=== PATIENT | female | born 1940 | race Caucasian/White ===

== ENCOUNTER → 2017-04-26 | Day surgery (SDC) | payer MEDICARE, MEDICAID ==
[~2017-04-26] MED LIST: LIDOCAINE 1%/EPI 1:200,000 10 ML VIAL IJ ONE; SODIUM BICARBONATE 4% (2.4MEQ) 5ML VIAL IV ONE
== END | disposition home or self-care (01) ==
LOC: RAD 08:55
PROVIDERS: ATTEND Internal Medicine
DX: C50.311 Malignant neoplasm of lower-inner quadrant of right female breast (principal)
CPT/HCPCS: 19083; 88305; A4648; J3490

== ENCOUNTER 2017-08-07 06:48 | Day surgery (SDC) | payer MEDICARE, MEDICAID ==
[~2017-08-07] VITALS: Ht 149.9 cm; Wt 53.1 kg
[2017-08-07 08:17] LABS: PARTIAL THROMBOPLASTIN TIME 24.1 sec (23.4-31.0); PROTHROMBIN TIME 10.3 sec (9.4-11.6)
[2017-08-07] MEDS ORDERED: SODIUM CHLORIDE 0.9% 1,000 ML IV SCH (09:30)
[2017-08-07] MEDS ORDERED: IBUP-2030 PO (10:05)
[2017-08-07] MEDS ORDERED: PENICILLIN PO (10:05)
[2017-08-07] MEDS ORDERED: INSLIS SUBCUT (10:10)
[2017-08-07] MEDS ORDERED: PRAV20TA57 PO (10:16)
[2017-08-07] MEDS ORDERED: INSU100I28 SQ ×2 (10:16)
[2017-08-07] MEDS ORDERED: TRAM50TA3 PO (10:16)
[2017-08-07] MEDS ORDERED: GABA-533 PO (10:16)
[2017-08-07] MEDS ORDERED: PANT40TA4 PO (10:19)
[2017-08-07] MEDS ORDERED: OXYB5TAB11 PO (10:19)
[2017-08-07] MEDS ORDERED: CLOT15CR2 TP (10:20)
[2017-08-07] MEDS ORDERED: NORMAL SALINE 0.9% 10 ML SYR ONE (12:52)
[2017-08-07] MEDS ORDERED: BUPIVACAINE HCL/PF 0.5% (5MG/ML) 10ML ONE (12:52)
[2017-08-07] MEDS ORDERED: FENTANYL CITRATE/PF 50MCG/ML 2ML VIAL ONE (12:59)
[2017-08-07] MEDS ORDERED: METHYLENE BLUE 50 MG/10 ML AMP IV ONE (13:03)
[2017-08-07] MEDS ORDERED: EPHEDRINE SULFATE 50MG/ML VIAL ONE (13:28)
[2017-08-07] MEDS ORDERED: LIDOCAINE HCL/PF 1% 10 MG/ML 5ML VIAL ONE (13:28)
[2017-08-07] MEDS ORDERED: PROPOFOL 200MG/20ML VIAL IV ONE (13:28)
[2017-08-07] MEDS ORDERED: CEFAZOLIN SODIUM 1000MG/VIAL ONE (13:28)
[2017-08-07] MEDS ORDERED: ONDANSETRON HCL 4MG/2ML VIAL ONE (13:31)
[2017-08-07] MEDS ORDERED: SKIN ADHESIVE 0.7 GM EA TOP ONE (14:01)
[2017-08-07] MEDS ORDERED: ESMOLOL HCL 10MG/ML 10ML VIAL IV ONE (14:10)
[2017-08-07] MEDS ORDERED: ONDANSETRON HCL 4MG/2ML VIAL IV NR (15:00)
[2017-08-07] MEDS ORDERED: HYDROCODONE/ACETAMINOPHEN 5/325MG TABLET PO PRN (15:00)
[2017-08-07] MEDS ORDERED: MORPHINE SULFATE 2 MG/ML CPJ (NOT FOR IM USE) IV PRN (15:00)
[2017-08-07] MEDS: FENTANYL CITRATE/PF 50MCG/ML 2ML VIAL IV PRN ×3 (15:10→15:46)
[2017-08-07 15:56] VITALS: BP 123/67
== END 2017-08-07 17:25 | disposition home or self-care (01) ==
LOC: OR 06:48
PROVIDERS: ATTEND Surgery
DX: C50.311 Malignant neoplasm of lower-inner quadrant of right female breast (principal); E78.00 Pure hypercholesterolemia, unspecified; I25.10 Atherosclerotic heart disease of native coronary artery without angina pectoris; K21.9 Gastro-esophageal reflux disease without esophagitis; Z79.4 Long term (current) use of insulin; Z79.899 Other long term (current) drug therapy; E11.40 Type 2 diabetes mellitus with diabetic neuropathy, unspecified; Z86.711 Personal history of pulmonary embolism; Z79.01 Long term (current) use of anticoagulants; I63.8 Other cerebral infarction; G81.94 Hemiplegia, unspecified affecting left nondominant side
CPT/HCPCS: 19083; 36415; 38525; 78195; 82962; 85610; 85730; 88307; 88309; 88331; A4216; G0168; J0171; J0690; J2405; J3010; J3490; J2704; Q9968